=== PATIENT | female | born 1955 | race African-American/Black ===

== ENCOUNTER 2017-07-11 20:39 | Emergency (ER) | payer OTHER ==
[~2017-07-11] VITALS: Ht 152.4 cm; Wt 50.0 kg
[2017-07-12 06:04] VITALS: BP 149/84
== END 2017-07-12 06:22 | disposition home or self-care (01) ==
LOC: ER 23:39
DX: M79.672 Pain in left foot (principal)
CPT/HCPCS: 29515; 73630; 99284